=== PATIENT | female | born 1975 | race Caucasian/White ===

== ENCOUNTER 2021-06-12 09:19 | Emergency (ER) | payer OTHER ==
[2021-06-12 09:40] VITALS: BP 130/81; PULSE 91; TEMP 98.4; BMI 25.7
[2021-06-12] MEDS ORDERED: IBUPROFEN 600 MG TABLET (FP) PO ONE ×3 (10:01→10:06)
== END 2021-06-12 10:27 | disposition home or self-care (01) ==
LOC: JERFT 09:19
DX: T23.261A Burn of second degree of back of right hand, initial encounter (principal); X10.0XXA Contact with hot drinks, initial encounter
CPT/HCPCS: 99283-25

== ENCOUNTER 2025-01-28 15:59 | Emergency (ER) | payer BC ==
[2025-01-28 16:12] VITALS: BP 125/75; PULSE 94; RESP 20; TEMP 98.4; BMI 24.0
[2025-01-28] MEDS ORDERED: IBUPROFEN 600 MG TABLET (FP) PO ONE (17:49)
[2025-01-28] MEDS: IBUPROFEN 600 MG TABLET (FP) PO ONE (18:20)
[2025-01-28] MEDS: SODIUM CHLORIDE 0.9% 500 ML INFUS.BAG IV ONE (18:21)
[2025-01-28 18:29] LABS: MCHC 33.8 g/dl (32.2-35.5); MEAN CELL VOLUME 94.8 fl (79.4-94.8); MEAN PLT VOLUME 11.9 fl (9.4-12.3); RDW 11.6 % (12.2-17.1)
[2025-01-28 19:04] LABS: CO2 29.0 mmol/L (21-32); GLUCOSE,RANDOM 98.0 mg/dL (74-106)
[2025-01-28 19:07] LABS: CREATININE 0.7 mg/dL (0.55-1.3); SGOT/AST 15.0 U/L (15-37); SGPT/ALT 25.0 U/L (13-61)
[2025-01-28 19:08] LABS: TOT PROT 7.9 g/dl (6.4-8.2)
[2025-01-28 19:09] LABS: ALK PHOS 63.0 U/L (45-117)
[2025-01-28 19:56] LABS: HIV INTERPRETATION NEGATIVE (NEGATIVE)
[2025-01-28 19:57] LABS: HCV DIAGNOSTIC IN-HOUSE W/RFLX NON-REACTIVE (NONREACTIVE)
== END 2025-01-28 20:00 | disposition home or self-care (01) ==
LOC: JER 15:59
PROC: 3E033GC Introduction of Other Therapeutic Substance into Peripheral Vein, Percutaneous Approach (ICD-10-PCS; principal; 2025-01-28)
DX: S40.261A Insect bite (nonvenomous) of right shoulder, initial encounter (principal); R51.9 Headache, unspecified; R11.2 Nausea with vomiting, unspecified; R42 Dizziness and giddiness; W57.XXXA Bitten or stung by nonvenomous insect and other nonvenomous arthropods, initial encounter; Y92.096 Garden or yard of other non-institutional residence as the place of occurrence of the external cause
CPT/HCPCS: 36415; 80053; 85027; 86803; 87389; 99284-25